=== PATIENT | male | born 1970 | race African-American/Black ===

== ENCOUNTER 2023-09-23 12:29 | Inpatient (IN) | payer OTHER ==
[2023-09-23 13:20] VITALS: BMI 21.6
[2023-09-23] MEDS ORDERED: ALBUTEROL SO4 HFA INHALER IH ONE (15:38)
[2023-09-23] MEDS ORDERED: BENZOCAINE/MENTHOL (CHLORASEPTIC ) LOZENGE MM PRN (15:49)
[2023-09-23] MEDS ORDERED: NALOXONE HCL 0.4 MG/ML VIAL IM PRN (15:49)
[2023-09-23] MEDS ORDERED: NALOXONE HCL (KLOXXADO) 8 MG SPRAY NS PRN (15:49)
[2023-09-23] MEDS ORDERED: guaiFENesin 600 MG TABLET.ER (FP) PO PRN (15:49)
[2023-09-23] MEDS ORDERED: NICOTINE POLACRILEX 2 MG LOZENGE BC PRN (15:49)
[2023-09-23] MEDS ORDERED: DICYCLOMINE HCL 10 MG CAPSULE PO PRN (15:49)
[2023-09-23] MEDS ORDERED: POLYETHYLENE GLYCOL (HEALTHYLAX) 3350 17 GM PACKET PO PRN (15:49)
[2023-09-23] MEDS ORDERED: ONDANSETRON *ODT* 4 MG TABLET SL PRN (15:49)
[2023-09-23] MEDS ORDERED: LOPERAMIDE HCL 2 MG CAPSULE PO PRN (15:49)
[2023-09-23] MEDS ORDERED: IBUPROFEN 400 MG TABLET (FP) PO PRN (15:49)
[2023-09-23] MEDS ORDERED: BISMUTH SUBSALICYLATE 524 MG/30 ML PO PRN (15:49)
[2023-09-23] MEDS ORDERED: BENZONATATE 200 MG CAPSULE PO PRN (15:49)
[2023-09-23] MEDS ORDERED: MAGNESIUM HYDROX 2400MG/30ML ORAL SUSPENSION 30 ML CUP PO PRN (15:49)
[2023-09-23] MEDS ORDERED: MAG HYDROX/AL HYDROX/SIMETH 30 ML UNIT-DOSE CUP PO PRN (15:49)
[2023-09-23] MEDS ORDERED: IBUPROFEN 600 MG TABLET (FP) PO PRN (15:49)
[2023-09-23] MEDS ORDERED: cloNIDine HCL 0.1 MG TABLET ONE (16:49)
[2023-09-23] MEDS: cloNIDine HCL 0.1 MG TABLET PO PRN (16:51)
[2023-09-23] MEDS: DOXYCYCLINE HYCLATE 100 MG TABLET PO SCH (17:54)
[2023-09-23] MEDS: METHOCARBAMOL 500 MG TABLET PO PRN (18:51)
[2023-09-23] MEDS: ACETAMINOPHEN 325 MG TABLET (FP) PO PRN (18:53)
[2023-09-23] MEDS: hydrOXYzine PAMOATE 25 MG CAPSULE (FP) PO PRN (20:51)
[2023-09-23] MEDS ORDERED: P-EPHED 60MG/TRIPROLIDI 2.5MG TABLET PO PRN (22:30)
[2023-09-23] MEDS: THIAMINE HCL 100 MG TABLET (FP) PO SCH (22:51)
[2023-09-23] MEDS: MELATONIN 5 MG TABLETS PO SCH (22:51)
[2023-09-24] MEDS: OSELTAMIVIR PHOSPHATE 75 MG CAPSULE PO SCH ×3 (00:09→22:50)
[2023-09-24] MEDS: cloNIDine HCL 0.1 MG TABLET PO PRN (05:57)
[2023-09-24] MEDS: hydrOXYzine PAMOATE 25 MG CAPSULE (FP) PO PRN ×2 (05:57→22:51)
[2023-09-24] MEDS: METHOCARBAMOL 500 MG TABLET PO PRN ×2 (05:57→22:50)
[2023-09-24] MEDS: ACETAMINOPHEN 325 MG TABLET (FP) PO PRN (05:58)
[2023-09-24] MEDS: ALBUTEROL SO4 HFA INHALER IH PRN ×2 (06:05→19:25)
[2023-09-24] MEDS: DOXYCYCLINE HYCLATE 100 MG TABLET PO SCH ×2 (09:04→17:50)
[2023-09-24] MEDS: PRENATAL VITAMINS W/ FOLIC ACID TABLET (FP) PO SCH (09:04)
[2023-09-24] MEDS: NICOTINE 14 MG/24 HOURS TOPICAL PATCH TD SCH (09:14)
[2023-09-24] MEDS ORDERED: chlordiazePOXIDE HCL 25 MG CAPSULE PO PRN (10:25)
[2023-09-24] MEDS: chlordiazePOXIDE HCL 25 MG CAPSULE PO SCH ×3 (10:43→22:51)
[2023-09-24 11:44] LABS: HEMATOCRIT 38.5 % (35.4-49); HEMOGLOBIN 12.6 GM/dL (11.7-16.9); MCH 27.5 pg (25.7-33.7); MCHC 32.8 g/dl (32.0-35.9); PLATELET COUNT 327 10^3/uL (134-434); RBC 4.58 M/mm3 (4.00-5.60); WHITE BLOOD COUNT 5.5 K/mm3 (4.0-10.0)
[2023-09-24 11:54] LABS: EPI CELLS 2 /uL (0-25.1); HYALINE CASTS 1 /uL (0-3.1); URINE APPEARANCE CLOUDY; URINE BACTERIA 23 /uL (0-1359); URINE BILIRUBIN NEGATIVE (NEGATIVE); URINE COLOR YELLOW; URINE GLUCOSE (UA) NEGATIVE (NEGATIVE); URINE KETONE NEGATIVE (NEGATIVE); URINE LEUK ESTERASE 3+ (NEGATIVE); URINE NITRITE NEGATIVE (NEGATIVE); URINE PROTEIN NEGATIVE (NEGATIVE); URINE RBC 13 /uL (0-23.9); URINE UROBILINOGEN 0.2 mg/dL (0.2-1.0); URINE WBC 1269 /uL (0-25.8)
[2023-09-24 12:26] LABS: CHLORIDE 104 mmol/L (98-107); POTASSIUM 4.4 mmol/L (3.5-5.1); SODIUM 138 mmol/L (136-145)
[2023-09-24 12:44] LABS: ALBUMIN 3.1 g/dl (3.4-5.0); CALCIUM 8.7 mg/dL (8.5-10.1)
[2023-09-24 12:45] LABS: ANION GAP 6 mmol/L (4-13); BLOOD UREA NITROGEN 14.8 mg/dL (7-18); CO2 29 mmol/L (21-32); GLUCOSE,RANDOM 96 mg/dL (74-106)
[2023-09-24 12:47] LABS: CREATININE 1.4 mg/dL (0.55-1.3)
[2023-09-24 12:48] LABS: SGOT/AST 22 U/L (15-37); SGPT/ALT 20 U/L (13-61); TOT PROT 6.5 g/dl (6.4-8.2)
[2023-09-24 12:49] LABS: BILIRUBIN,TOTAL 0.4 mg/dL (0.2-1)
[2023-09-24 12:50] LABS: ALK PHOS 84 U/L (45-117)
[2023-09-24] MEDS: MELATONIN 5 MG TABLETS PO SCH (22:49)
[2023-09-24] MEDS: THIAMINE HCL 100 MG TABLET (FP) PO SCH (22:51)
[2023-09-25] MEDS: chlordiazePOXIDE HCL 25 MG CAPSULE PO SCH ×3 (06:00→17:06)
[2023-09-25] MEDS: DOXYCYCLINE HYCLATE 100 MG TABLET PO SCH ×2 (10:23→17:06)
[2023-09-25] MEDS: OSELTAMIVIR PHOSPHATE 75 MG CAPSULE PO SCH (10:24)
[2023-09-25] MEDS: PRENATAL VITAMINS W/ FOLIC ACID TABLET (FP) PO SCH (10:24)
[2023-09-25] MEDS: NICOTINE 14 MG/24 HOURS TOPICAL PATCH TD SCH (10:24)
[2023-09-25] MEDS: ACETAMINOPHEN 325 MG TABLET (FP) PO PRN (17:07)
[2023-09-25 21:37] VITALS: BP 124/77; PULSE 96; RESP 16; TEMP 97.5
[2023-09-26] MEDS ORDERED: chlordiazePOXIDE HCL 25 MG CAPSULE PO SCH (05:00)
[2023-09-27] MEDS ORDERED: chlordiazePOXIDE HCL 10 MG CAPSULE PO PRN
[2023-09-27] MEDS ORDERED: chlordiazePOXIDE HCL 10 MG CAPSULE PO SCH (05:00)
[2023-09-28] MEDS ORDERED: chlordiazePOXIDE HCL 10 MG CAPSULE PO SCH (05:00)
[2023-09-29] MEDS ORDERED: chlordiazePOXIDE HCL 10 MG CAPSULE PO ONE (05:00)
== END 2023-09-25 21:50 | disposition left against medical advice (07) | DRG 770 ==
LOC: YASAS 12:29 → Y3N 16:29
PROVIDERS: ADMIT Allergy & Immunology; ATTEND Surgery
PROC: HZ2ZZZZ Detoxification Services for Substance Abuse Treatment (ICD-10-PCS; principal; 2023-09-23)
DX: F10.230 Alcohol dependence with withdrawal, uncomplicated (principal); F14.20 Cocaine dependence, uncomplicated; F13.10 Sedative, hypnotic or anxiolytic abuse, uncomplicated; F17.210 Nicotine dependence, cigarettes, uncomplicated; J10.1 Influenza due to other identified influenza virus with other respiratory manifestations; J45.40 Moderate persistent asthma, uncomplicated; Z28.310 Unvaccinated for COVID-19; Z28.9 Immunization not carried out for unspecified reason; Z59.00 Homelessness unspecified
CPT/HCPCS: 0241U-QW; 36415; 80053; 80307; 81003; 85027; 86780; 87635; 87811; 93005; 93010

== ENCOUNTER 2023-11-17 14:26 | Inpatient (IN) | payer OTHER ==
[2023-11-17 15:35] VITALS: BMI 21.1
[2023-11-17] MEDS ORDERED: ONDANSETRON *ODT* 4 MG TABLET SL PRN (18:00)
[2023-11-17] MEDS ORDERED: DICYCLOMINE HCL 10 MG CAPSULE PO PRN (18:00)
[2023-11-17] MEDS ORDERED: MAGNESIUM HYDROX 2400MG/30ML ORAL SUSPENSION 30 ML CUP PO PRN (18:00)
[2023-11-17] MEDS ORDERED: MAG HYDROX/AL HYDROX/SIMETH 30 ML UNIT-DOSE CUP PO PRN (18:00)
[2023-11-17] MEDS ORDERED: ACETAMINOPHEN 325 MG TABLET (FP) PO PRN (18:00)
[2023-11-17] MEDS ORDERED: BENZOCAINE/MENTHOL (CHLORASEPTIC ) LOZENGE MM PRN (18:00)
[2023-11-17] MEDS ORDERED: NICOTINE POLACRILEX 2 MG GUM BUC PRN (18:00)
[2023-11-17] MEDS ORDERED: guaiFENesin 600 MG TABLET.ER (FP) PO PRN (18:00)
[2023-11-17] MEDS ORDERED: IBUPROFEN 400 MG TABLET (FP) PO PRN (18:00)
[2023-11-17] MEDS ORDERED: P-EPHED 60MG/TRIPROLIDI 2.5MG TABLET PO PRN (18:00)
[2023-11-17] MEDS ORDERED: POLYETHYLENE GLYCOL (HEALTHYLAX) 3350 17 GM PACKET PO PRN (18:00)
[2023-11-17] MEDS ORDERED: BENZONATATE 200 MG CAPSULE PO PRN (18:00)
[2023-11-17] MEDS ORDERED: LOPERAMIDE HCL 2 MG CAPSULE PO PRN (18:00)
[2023-11-17] MEDS: IBUPROFEN 600 MG TABLET (FP) PO PRN (20:03)
[2023-11-17] MEDS: METOPROLOL TARTRATE 25 MG TABLET (FP) PO ONE (22:29)
[2023-11-17] MEDS: THIAMINE HCL 100 MG TABLET (FP) PO SCH (22:29)
[2023-11-17] MEDS: MELATONIN 5 MG TABLETS PO SCH (22:29)
[2023-11-18] MEDS: diazePAM 5 MG TABLET PO SCH (10:47)
[2023-11-18] MEDS: PRENATAL VITAMINS W/ FOLIC ACID TABLET (FP) PO SCH (10:47)
[2023-11-18 12:04] LABS: HEMATOCRIT 43.4 % (35.4-49); HEMOGLOBIN 14.5 GM/dL (11.7-16.9); MCH 28.1 pg (25.7-33.7); MCHC 33.5 g/dl (32.0-35.9); MEAN CELL VOLUME 84.1 fl (80-96); PLATELET COUNT 515 10^3/uL (134-434); RBC 5.16 M/mm3 (4.00-5.60); RDW 17.4 % (11.9-15.9); WHITE BLOOD COUNT 13.3 K/mm3 (4.0-10.0)
[2023-11-18 12:13] LABS: POTASSIUM 4.5 mmol/L (3.5-5.1)
[2023-11-18 12:19] LABS: BLOOD UREA NITROGEN 8.4 mg/dL (7-18); CALCIUM 9.1 mg/dL (8.5-10.1)
[2023-11-18 12:20] LABS: ALBUMIN 3.4 g/dl (3.4-5.0)
[2023-11-18 12:23] LABS: CREATININE 1.1 mg/dL (0.55-1.3)
[2023-11-18 12:24] LABS: BILIRUBIN,TOTAL 0.6 mg/dL (0.2-1); TOT PROT 7.4 g/dl (6.4-8.2)
[2023-11-18] MEDS: diazePAM 5 MG TABLET PO PRN (12:44)
[2023-11-18] MEDS ORDERED: ALBUTEROL SO4 HFA INHALER IH PRN (15:55)
[2023-11-20] MEDS: BISMUTH SUBSALICYLATE 524 MG/30 ML PO PRN (01:13)
[2023-11-20] MEDS: diazePAM 5 MG TABLET PO SCH (05:32)
[2023-11-20 09:38] VITALS: BP 114/75; PULSE 82; RESP 18; TEMP 97.8
[2023-11-21] MEDS ORDERED: diazePAM 5 MG TABLET PO SCH (06:00)
[2023-11-22] MEDS ORDERED: diazePAM 5 MG TABLET PO ONE (06:00)
== END 2023-11-20 14:18 | disposition left against medical advice (07) | DRG 770 ==
LOC: YASAS 14:26 → Y6N 19:06
PROVIDERS: ADMIT Allergy & Immunology; ATTEND Surgery
PROC: HZ2ZZZZ Detoxification Services for Substance Abuse Treatment (ICD-10-PCS; principal; 2023-11-17)
DX: F10.230 Alcohol dependence with withdrawal, uncomplicated (principal); F14.20 Cocaine dependence, uncomplicated; F17.210 Nicotine dependence, cigarettes, uncomplicated; J45.909 Unspecified asthma, uncomplicated; Z86.19 Personal history of other infectious and parasitic diseases; Z28.310 Unvaccinated for COVID-19; Z28.9 Immunization not carried out for unspecified reason
CPT/HCPCS: 0241U-QW; 36415; 71045-TC-FY; 80053; 80305; 85027; 86780; 87811; 93005; 93010

== ENCOUNTER 2023-12-08 11:17 | Inpatient (IN) | payer OTHER ==
[2023-12-08 11:47] VITALS: BMI 21.7
[2023-12-08] MEDS ORDERED: BENZONATATE 200 MG CAPSULE PO PRN (13:29)
[2023-12-08] MEDS ORDERED: POLYETHYLENE GLYCOL (HEALTHYLAX) 3350 17 GM PACKET PO PRN (13:29)
[2023-12-08] MEDS ORDERED: ACETAMINOPHEN 325 MG TABLET (FP) PO PRN (13:29)
[2023-12-08] MEDS ORDERED: NALOXONE HCL 0.4 MG/ML VIAL IM PRN (13:29)
[2023-12-08] MEDS ORDERED: MAGNESIUM HYDROX 2400MG/30ML ORAL SUSPENSION 30 ML CUP PO PRN (13:29)
[2023-12-08] MEDS ORDERED: BENZOCAINE/MENTHOL (CHLORASEPTIC ) LOZENGE MM PRN (13:29)
[2023-12-08] MEDS ORDERED: IBUPROFEN 600 MG TABLET (FP) PO PRN (13:29)
[2023-12-08] MEDS ORDERED: DICYCLOMINE HCL 10 MG CAPSULE PO PRN (13:29)
[2023-12-08] MEDS ORDERED: guaiFENesin 600 MG TABLET.ER (FP) PO PRN (13:29)
[2023-12-08] MEDS ORDERED: IBUPROFEN 400 MG TABLET (FP) PO PRN (13:29)
[2023-12-08] MEDS ORDERED: NALOXONE HCL (KLOXXADO) 8 MG SPRAY NS PRN (13:29)
[2023-12-08] MEDS ORDERED: ONDANSETRON *ODT* 4 MG TABLET SL PRN (13:29)
[2023-12-08] MEDS ORDERED: LOPERAMIDE HCL 2 MG CAPSULE PO PRN (13:29)
[2023-12-08] MEDS: diazePAM 5 MG TABLET PO SCH (17:45)
[2023-12-08] MEDS: BISMUTH SUBSALICYLATE 262 MG/15 ML BTL PO PRN (20:37)
[2023-12-08] MEDS: THIAMINE HCL 100 MG TABLET (FP) PO SCH (22:48)
[2023-12-08] MEDS: MELATONIN 5 MG TABLETS PO SCH (22:48)
[2023-12-08] MEDS: hydrOXYzine PAMOATE 25 MG CAPSULE (FP) PO PRN (22:48)
[2023-12-08] MEDS: METHOCARBAMOL 500 MG TABLET PO PRN (22:48)
[2023-12-08] MEDS: MAG HYDROX/AL HYDROX/SIMETH 30 ML UNIT-DOSE CUP PO PRN (22:52)
[2023-12-09] MEDS ORDERED: ALBUTEROL SO4 HFA INHALER IH PRN (07:47)
[2023-12-09 08:56] LABS: HEMATOCRIT 39.7 % (35.4-49); HEMOGLOBIN 12.7 GM/dL (11.7-16.9); MCH 27.4 pg (25.7-33.7); MEAN CELL VOLUME 85.4 fl (80-96); MEAN PLT VOLUME 8.3 fl (7.5-11.1); PLATELET COUNT 325 10^3/uL (134-434); RBC 4.65 M/mm3 (4.00-5.60); RDW 16.9 % (11.9-15.9); WHITE BLOOD COUNT 5.1 K/mm3 (4.0-10.0)
[2023-12-09 09:10] LABS: CHLORIDE 107 mmol/L (98-107); POTASSIUM 4.6 mmol/L (3.5-5.1); SODIUM 141 mmol/L (136-145)
[2023-12-09 09:22] LABS: BLOOD UREA NITROGEN 16.1 mg/dL (7-18); CALCIUM 8.8 mg/dL (8.5-10.1)
[2023-12-09 09:23] LABS: ALBUMIN 3.1 g/dl (3.4-5.0); ANION GAP 6 mmol/L (4-13); CO2 28 mmol/L (21-32); GLUCOSE,RANDOM 87 mg/dL (74-106)
[2023-12-09 09:25] LABS: BILIRUBIN,TOTAL 0.5 mg/dL (0.2-1); SGPT/ALT 17 U/L (13-61); TOT PROT 6.4 g/dl (6.4-8.2)
[2023-12-09 09:26] LABS: ALK PHOS 84 U/L (45-117); CREATININE 1.1 mg/dL (0.55-1.3); SGOT/AST 24 U/L (15-37)
[2023-12-09] MEDS: NICOTINE 21 MG/24 HOURS TOPICAL PATCH TD SCH (10:31)
[2023-12-09] MEDS: PRENATAL VITAMINS W/ FOLIC ACID TABLET (FP) PO SCH (10:31)
[2023-12-10] MEDS: diazePAM 5 MG TABLET PO SCH (05:41)
[2023-12-10 09:45] VITALS: RESP 18
[2023-12-10] MEDS: diazePAM 5 MG TABLET PO PRN (10:06)
[2023-12-10 13:21] VITALS: BP 145/100; PULSE 84; TEMP 97.7
[2023-12-11] MEDS ORDERED: diazePAM 5 MG TABLET PO SCH (06:00)
[2023-12-12] MEDS ORDERED: diazePAM 5 MG TABLET PO ONE (06:00)
== END 2023-12-10 15:36 | disposition left against medical advice (07) | DRG 770 ==
LOC: YASAS 11:17 → Y6N 14:38
PROVIDERS: ADMIT Allergy & Immunology; ATTEND Surgery
PROC: HZ2ZZZZ Detoxification Services for Substance Abuse Treatment (ICD-10-PCS; principal; 2023-12-08)
DX: F10.230 Alcohol dependence with withdrawal, uncomplicated (principal); F14.20 Cocaine dependence, uncomplicated; I10 Essential (primary) hypertension; J45.40 Moderate persistent asthma, uncomplicated; Z86.19 Personal history of other infectious and parasitic diseases
CPT/HCPCS: 36415; 80053; 80307; 85027; 86780; 93005; 93010

== ENCOUNTER 2024-03-10 08:50 | Inpatient (IN) | payer OTHER ==
[2024-03-10 09:45] VITALS: BMI 21.2
[2024-03-10] MEDS ORDERED: LOPERAMIDE HCL 2 MG CAPSULE PO PRN (11:52)
[2024-03-10] MEDS ORDERED: NALOXONE HCL 0.4 MG/ML VIAL IM PRN (11:52)
[2024-03-10] MEDS ORDERED: BENZOCAINE/MENTHOL (CHLORASEPTIC ) LOZENGE MM PRN (11:52)
[2024-03-10] MEDS ORDERED: ONDANSETRON *ODT* 4 MG TABLET SL PRN (11:52)
[2024-03-10] MEDS ORDERED: IBUPROFEN 400 MG TABLET (FP) PO PRN (11:52)
[2024-03-10] MEDS ORDERED: NICOTINE POLACRILEX 2 MG GUM BUC PRN (11:52)
[2024-03-10] MEDS ORDERED: MAGNESIUM HYDROX 2400MG/30ML ORAL SUSPENSION 30 ML CUP PO PRN (11:52)
[2024-03-10] MEDS ORDERED: MAG HYDROX/AL HYDROX/SIMETH 30 ML UNIT-DOSE CUP PO PRN (11:52)
[2024-03-10] MEDS ORDERED: BISMUTH SUBSALICYLATE 524 MG/30 ML PO PRN (11:52)
[2024-03-10] MEDS ORDERED: POLYETHYLENE GLYCOL (HEALTHYLAX) 3350 17 GM PACKET PO PRN (11:52)
[2024-03-10] MEDS ORDERED: BENZONATATE 200 MG CAPSULE PO PRN (11:52)
[2024-03-10] MEDS ORDERED: ACETAMINOPHEN 325 MG TABLET (FP) PO PRN (11:52)
[2024-03-10] MEDS ORDERED: NALOXONE (NARCAN) HCL 4 MG/0.1 ML SPRAY NS PRN (11:52)
[2024-03-10] MEDS ORDERED: guaiFENesin 600 MG TABLET.ER (FP) PO PRN (11:52)
[2024-03-10] MEDS ORDERED: DICYCLOMINE HCL 10 MG CAPSULE PO PRN (11:52)
[2024-03-10] MEDS ORDERED: cloNIDine HCL 0.1 MG TABLET ONE (12:04)
[2024-03-10] MEDS: cloNIDine HCL 0.1 MG TABLET PO ONE (12:06)
[2024-03-10] MEDS ORDERED: ALBUTEROL SO4 HFA INHALER IH PRN (15:03)
[2024-03-10] MEDS: diazePAM 5 MG TABLET PO PRN (18:48)
[2024-03-10] MEDS: MELATONIN 5 MG TABLETS PO SCH (22:09)
[2024-03-10] MEDS: THIAMINE 100 MG TABLET PO SCH (22:09)
[2024-03-10] MEDS: diazePAM 5 MG TABLET PO SCH (22:10)
[2024-03-10] MEDS: METHOCARBAMOL 500 MG TABLET PO PRN (22:10)
[2024-03-11 08:32] LABS: POTASSIUM 4.5 mmol/L (3.5-5.1)
[2024-03-11 08:34] LABS: HEMATOCRIT 39.8 % (35.4-49); HEMOGLOBIN 13.5 GM/dL (11.7-16.9); MCH 27.8 pg (25.7-33.7); MCHC 33.9 g/dl (32.0-35.9); MEAN CELL VOLUME 81.9 fl (80-96); MEAN PLT VOLUME 7.9 fl (7.5-11.1); PLATELET COUNT 276 10^3/uL (134-434); RBC 4.85 M/mm3 (4.00-5.60); RDW 16.8 % (11.9-15.9); WHITE BLOOD COUNT 5.5 K/mm3 (4.0-10.0)
[2024-03-11 08:35] LABS: ALBUMIN 3.6 g/dl (3.4-5.0); CALCIUM 8.7 mg/dL (8.5-10.1)
[2024-03-11 08:39] LABS: CREATININE 1.1 mg/dL (0.55-1.3)
[2024-03-11 08:40] LABS: BILIRUBIN,TOTAL 0.8 mg/dL (0.2-1); TOT PROT 7.1 g/dl (6.4-8.2)
[2024-03-11] MEDS: PRENATAL VITAMINS W/ FOLIC ACID TABLET (FP) PO SCH (10:24)
[2024-03-11] MEDS: NICOTINE 21 MG/24 HOURS TOPICAL PATCH TD SCH (10:24)
[2024-03-11] MEDS: hydrOXYzine PAMOATE 25 MG CAPSULE (FP) PO PRN (20:14)
[2024-03-11] MEDS: IBUPROFEN 600 MG TABLET (FP) PO PRN (20:19)
[2024-03-12] MEDS: diazePAM 5 MG TABLET PO SCH (06:14)
[2024-03-12 12:50] VITALS: RESP 18
[2024-03-12 16:43] VITALS: BP 131/86; PULSE 88; TEMP 99.3
[2024-03-13] MEDS ORDERED: diazePAM 5 MG TABLET PO SCH (06:00)
[2024-03-14] MEDS ORDERED: diazePAM 5 MG TABLET PO ONE (06:00)
== END 2024-03-12 18:38 | disposition left against medical advice (07) | DRG 770 ==
LOC: YASAS 08:50 → Y3N 12:09
PROVIDERS: ADMIT Allergy & Immunology; ATTEND Surgery
PROC: HZ2ZZZZ Detoxification Services for Substance Abuse Treatment (ICD-10-PCS; principal; 2024-03-10)
DX: F10.230 Alcohol dependence with withdrawal, uncomplicated (principal); F14.10 Cocaine abuse, uncomplicated; F17.210 Nicotine dependence, cigarettes, uncomplicated; J45.40 Moderate persistent asthma, uncomplicated; Z86.11 Personal history of tuberculosis
CPT/HCPCS: 36415; 80053; 80305; 80307; 85027; 86780; 93005; 93010

== ENCOUNTER 2024-04-01 09:51 | Inpatient (IN) | payer OTHER ==
[2024-04-01 10:36] VITALS: BMI 22.1
[2024-04-01] MEDS ORDERED: NICOTINE POLACRILEX 2 MG LOZENGE BC PRN (11:42)
[2024-04-01] MEDS ORDERED: NICOTINE POLACRILEX 2 MG GUM BUC PRN (11:42)
[2024-04-01] MEDS ORDERED: MAGNESIUM HYDROX 2400MG/30ML ORAL SUSPENSION 30 ML CUP PO PRN (11:42)
[2024-04-01] MEDS ORDERED: POLYETHYLENE GLYCOL (HEALTHYLAX) 3350 17 GM PACKET PO PRN (11:42)
[2024-04-01] MEDS ORDERED: P-EPHED 60MG/TRIPROLIDI 2.5MG TABLET PO PRN (11:42)
[2024-04-01] MEDS ORDERED: IBUPROFEN 400 MG TABLET (FP) PO PRN (11:42)
[2024-04-01] MEDS ORDERED: LOPERAMIDE HCL 2 MG CAPSULE PO PRN (11:42)
[2024-04-01] MEDS ORDERED: DICYCLOMINE HCL 10 MG CAPSULE PO PRN (11:42)
[2024-04-01] MEDS ORDERED: BENZONATATE 200 MG CAPSULE PO PRN (11:42)
[2024-04-01] MEDS ORDERED: guaiFENesin 600 MG TABLET.ER (FP) PO PRN (11:42)
[2024-04-01] MEDS ORDERED: BENZOCAINE/MENTHOL (CHLORASEPTIC ) LOZENGE MM PRN (11:42)
[2024-04-01] MEDS ORDERED: ONDANSETRON *ODT* 4 MG TABLET SL PRN (11:42)
[2024-04-01] MEDS ORDERED: MAG HYDROX/AL HYDROX/SIMETH 30 ML UNIT-DOSE CUP PO PRN (11:42)
[2024-04-01] MEDS: NICOTINE 14 MG/24 HOURS TOPICAL PATCH TD SCH (12:58)
[2024-04-01] MEDS ORDERED: ALBUTEROL SO4 HFA INHALER IH ONE (19:34)
[2024-04-01] MEDS: hydrOXYzine PAMOATE 25 MG CAPSULE (FP) PO PRN (19:36)
[2024-04-01] MEDS: METHOCARBAMOL 500 MG TABLET PO PRN (19:36)
[2024-04-01] MEDS: IBUPROFEN 600 MG TABLET (FP) PO PRN (19:36)
[2024-04-01] MEDS: ALBUTEROL SO4 HFA INHALER IH PRN (19:51)
[2024-04-01] MEDS: MELATONIN 5 MG TABLETS PO SCH (22:30)
[2024-04-01] MEDS: THIAMINE 100 MG TABLET PO SCH (22:30)
[2024-04-02] MEDS: cloNIDine HCL 0.1 MG TABLET PO ONE (07:39)
[2024-04-02] MEDS: PRENATAL VITAMINS W/ FOLIC ACID TABLET (FP) PO SCH (10:40)
[2024-04-03] MEDS: diazePAM 5 MG TABLET PO SCH (10:03)
[2024-04-03] MEDS: ACETAMINOPHEN 325 MG TABLET (FP) PO PRN (10:03)
[2024-04-03] MEDS: BISMUTH SUBSALICYLATE 262 MG/15 ML BTL PO PRN (16:04)
[2024-04-04 21:21] VITALS: RESP 18
[2024-04-04] MEDS ORDERED: amLODIPine BESYLATE 5 MG TABLET (FP) PO ONE (21:26)
[2024-04-04] MEDS: amLODIPine BESYLATE 5 MG TABLET (FP) PO ONE (21:47)
[2024-04-05] MEDS ORDERED: diazePAM 5 MG TABLET PO SCH (06:00)
[2024-04-05 06:13] VITALS: BP 152/98; PULSE 82; TEMP 98.7
[2024-04-05] MEDS: diazePAM 5 MG TABLET PO ONE (06:59)
== END 2024-04-05 09:00 | disposition home or self-care (01) | DRG 774 ==
LOC: YASAS 09:51 → Y3N 13:15
PROVIDERS: ADMIT Allergy & Immunology; ATTEND Surgery
PROC: HZ2ZZZZ Detoxification Services for Substance Abuse Treatment (ICD-10-PCS; principal; 2024-04-01)
DX: F10.230 Alcohol dependence with withdrawal, uncomplicated (principal); F14.20 Cocaine dependence, uncomplicated; F12.20 Cannabis dependence, uncomplicated; F17.210 Nicotine dependence, cigarettes, uncomplicated; J45.40 Moderate persistent asthma, uncomplicated; Z86.11 Personal history of tuberculosis; Z86.19 Personal history of other infectious and parasitic diseases
CPT/HCPCS: 80305; 80307

== ENCOUNTER 2024-05-20 20:03 | Inpatient (IN) | payer OTHER ==
[2024-05-21 02:03] VITALS: BMI 22.6
[2024-05-21] MEDS ORDERED: diazePAM 5 MG TABLET PO PRN (12:00)
[2024-05-21] MEDS ORDERED: BISMUTH SUBSALICYLATE 524 MG/30 ML PO PRN (12:00)
[2024-05-21] MEDS ORDERED: LOPERAMIDE HCL 2 MG CAPSULE PO PRN (12:00)
[2024-05-21] MEDS ORDERED: BENZOCAINE/MENTHOL (CHLORASEPTIC ) LOZENGE MM PRN (12:00)
[2024-05-21] MEDS ORDERED: IBUPROFEN 600 MG TABLET (FP) PO PRN (12:00)
[2024-05-21] MEDS ORDERED: ONDANSETRON *ODT* 4 MG TABLET SL PRN (12:00)
[2024-05-21] MEDS ORDERED: guaiFENesin 600 MG TABLET.ER (FP) PO PRN (12:00)
[2024-05-21] MEDS ORDERED: POLYETHYLENE GLYCOL (HEALTHYLAX) 3350 17 GM PACKET PO PRN (12:00)
[2024-05-21] MEDS ORDERED: ACETAMINOPHEN 325 MG TABLET (FP) PO PRN (12:00)
[2024-05-21] MEDS ORDERED: METHOCARBAMOL 500 MG TABLET PO PRN (12:00)
[2024-05-21] MEDS ORDERED: BENZONATATE 200 MG CAPSULE PO PRN (12:00)
[2024-05-21] MEDS ORDERED: DICYCLOMINE HCL 10 MG CAPSULE PO PRN (12:00)
[2024-05-21] MEDS ORDERED: IBUPROFEN 400 MG TABLET (FP) PO PRN (12:00)
[2024-05-21] MEDS ORDERED: NICOTINE 21 MG/24 HOURS TOPICAL PATCH TD PRN (12:15)
[2024-05-21] MEDS ORDERED: NICOTINE POLACRILEX 4 MG GUM BUC PRN (12:15)
[2024-05-21] MEDS ORDERED: ALBUTEROL SO4 HFA INHALER IH PRN (12:23)
[2024-05-21] MEDS ORDERED: amLODIPine BESYLATE 5 MG TABLET (FP) ONE (12:43)
[2024-05-21] MEDS: amLODIPine BESYLATE 5 MG TABLET (FP) PO SCH (12:44)
[2024-05-21] MEDS ORDERED: LISINOPRIL 10 MG TABLET PO SCH (12:45)
[2024-05-21] MEDS ORDERED: MAG HYDROX/AL HYDROX/SIMETH 30 ML UNIT-DOSE CUP ONE (12:51)
[2024-05-21] MEDS: MAG HYDROX/AL HYDROX/SIMETH 30 ML UNIT-DOSE CUP PO PRN (12:52)
[2024-05-21] MEDS ORDERED: NALOXONE (NARCAN) HCL 4 MG/0.1 ML SPRAY NS PRN (13:00)
[2024-05-21] MEDS ORDERED: MAGNESIUM HYDROX 2400MG/30ML ORAL SUSPENSION 30 ML CUP PO PRN (13:00)
[2024-05-21] MEDS ORDERED: NALOXONE HCL 0.4 MG/ML VIAL IM PRN (13:00)
[2024-05-21] MEDS: diazePAM 5 MG TABLET PO SCH (17:20)
[2024-05-21] MEDS: MELATONIN 5 MG TABLETS PO SCH (22:38)
[2024-05-21] MEDS: THIAMINE 100 MG TABLET PO SCH (22:39)
[2024-05-22 09:25] LABS: HEMOGLOBIN 14.4 GM/dL (11.7-16.9); MCH 28.3 pg (25.7-33.7); MCHC 33.4 g/dl (32.0-35.9); MEAN CELL VOLUME 84.8 fl (80-96); MEAN PLT VOLUME 8.4 fl (7.5-11.1); PLATELET COUNT 281 10^3/uL (134-434); RBC 5.08 M/mm3 (4.00-5.60); RDW 17.6 % (11.9-15.9); WHITE BLOOD COUNT 4.8 K/mm3 (4.0-10.0)
[2024-05-22 09:26] LABS: CHLORIDE 104 mmol/L (98-107); POTASSIUM 4.2 mmol/L (3.5-5.1); SODIUM 139 mmol/L (136-145)
[2024-05-22 09:28] LABS: ALBUMIN 3.2 g/dl (3.4-5.0); CALCIUM 8.8 mg/dL (8.5-10.1)
[2024-05-22 09:29] LABS: ANION GAP 7 mmol/L (4-13); BLOOD UREA NITROGEN 9.1 mg/dL (7-18); CO2 27 mmol/L (21-32); GLUCOSE,RANDOM 128 mg/dL (74-106)
[2024-05-22 09:32] LABS: SGOT/AST 30 U/L (15-37); SGPT/ALT 19 U/L (13-61)
[2024-05-22 09:33] LABS: BILIRUBIN,TOTAL 0.8 mg/dL (0.2-1); TOT PROT 6.7 g/dl (6.4-8.2)
[2024-05-22 09:35] LABS: ALK PHOS 106 U/L (45-117)
[2024-05-22] MEDS: PRENATAL VITAMINS W/ FOLIC ACID TABLET (FP) PO SCH (10:19)
[2024-05-23] MEDS: diazePAM 5 MG TABLET PO SCH (06:14)
[2024-05-23 13:19] VITALS: BP 134/85; PULSE 83; RESP 18; TEMP 98.7
[2024-05-24] MEDS ORDERED: diazePAM 5 MG TABLET PO SCH (06:00)
[2024-05-25] MEDS ORDERED: diazePAM 5 MG TABLET PO ONE (06:00)
== END 2024-05-23 15:12 | disposition left against medical advice (07) | DRG 770 ==
LOC: YASAS 20:03 → Y6N 05-21 13:39
PROVIDERS: ADMIT Surgery; ATTEND Family Medicine Addiction Medicine
PROC: HZ2ZZZZ Detoxification Services for Substance Abuse Treatment (ICD-10-PCS; principal; 2024-05-21)
DX: F10.230 Alcohol dependence with withdrawal, uncomplicated (principal); F14.20 Cocaine dependence, uncomplicated; F12.20 Cannabis dependence, uncomplicated; F17.210 Nicotine dependence, cigarettes, uncomplicated; I10 Essential (primary) hypertension; J45.909 Unspecified asthma, uncomplicated; Z86.11 Personal history of tuberculosis; Z86.19 Personal history of other infectious and parasitic diseases; Z59.02 Unsheltered homelessness
CPT/HCPCS: 36415; 80053; 80305; 80307; 85027; 86780; 93005; 93010

== ENCOUNTER 2024-06-19 21:05 | Inpatient (IN) | payer OTHER ==
[2024-06-19 22:14] VITALS: BMI 21.6
[2024-06-20] MEDS ORDERED: NALOXONE (NARCAN) HCL 4 MG/0.1 ML SPRAY NS PRN (00:52)
[2024-06-20] MEDS ORDERED: BENZONATATE 200 MG CAPSULE PO PRN (00:52)
[2024-06-20] MEDS ORDERED: IBUPROFEN 400 MG TABLET (FP) PO PRN (00:52)
[2024-06-20] MEDS ORDERED: ONDANSETRON *ODT* 4 MG TABLET SL PRN (00:52)
[2024-06-20] MEDS ORDERED: MAGNESIUM HYDROX 2400MG/30ML ORAL SUSPENSION 30 ML CUP PO PRN (00:52)
[2024-06-20] MEDS ORDERED: ACETAMINOPHEN 325 MG TABLET (FP) PO PRN (00:52)
[2024-06-20] MEDS ORDERED: LOPERAMIDE HCL 2 MG CAPSULE PO PRN (00:52)
[2024-06-20] MEDS ORDERED: DICYCLOMINE HCL 10 MG CAPSULE PO PRN (00:52)
[2024-06-20] MEDS ORDERED: POLYETHYLENE GLYCOL (HEALTHYLAX) 3350 17 GM PACKET PO PRN (00:52)
[2024-06-20] MEDS ORDERED: MAG HYDROX/AL HYDROX/SIMETH 30 ML UNIT-DOSE CUP PO PRN (00:52)
[2024-06-20] MEDS ORDERED: IBUPROFEN 600 MG TABLET (FP) PO PRN (00:52)
[2024-06-20] MEDS ORDERED: hydrOXYzine PAMOATE 25 MG CAPSULE (FP) PO PRN (00:52)
[2024-06-20] MEDS ORDERED: BISMUTH SUBSALICYLATE 524 MG/30 ML PO PRN (00:52)
[2024-06-20] MEDS ORDERED: guaiFENesin 600 MG TABLET.ER (FP) PO PRN (00:52)
[2024-06-20] MEDS ORDERED: BENZOCAINE/MENTHOL (CHLORASEPTIC ) LOZENGE MM PRN (00:52)
[2024-06-20] MEDS: NALOXONE (NYS OPIOID OVERDOSE PROGRAM) 4 MG/0.1 ML SPRAY NS ONE (00:58)
[2024-06-20] MEDS ORDERED: diazePAM 5 MG TABLET PO PRN (09:19)
[2024-06-20] MEDS: PRENATAL VITAMINS W/ FOLIC ACID TABLET (FP) PO SCH (09:24)
[2024-06-20] MEDS: diazePAM 5 MG TABLET PO SCH (10:01)
[2024-06-20] MEDS ORDERED: ALBUTEROL SO4 HFA INHALER IH PRN (10:35)
[2024-06-20] MEDS ORDERED: MELATONIN 5 MG TABLETS PO SCH (22:00)
[2024-06-20] MEDS: SUVOREXANT 10 MG TABLET PO PRN (22:17)
[2024-06-20] MEDS: THIAMINE 100 MG TABLET PO SCH (22:17)
[2024-06-21] MEDS: METHOCARBAMOL 500 MG TABLET PO PRN (10:23)
[2024-06-21] MEDS: amLODIPine BESYLATE 10 MG TABLET (FP) PO SCH (11:56)
[2024-06-21 14:43] LABS: HEMATOCRIT 42.7 % (35.4-49); MCH 27.7 pg (25.7-33.7); MCHC 32.8 g/dl (32.0-35.9); MEAN CELL VOLUME 84.6 fl (80-96); MEAN PLT VOLUME 8.7 fl (7.5-11.1); PLATELET COUNT 304 10^3/uL (134-434); RBC 5.05 M/mm3 (4.00-5.60); RDW 16.1 % (11.9-15.9); WHITE BLOOD COUNT 4.2 K/mm3 (4.0-10.0)
[2024-06-21 14:56] LABS: POTASSIUM 4.5 mmol/L (3.5-5.1)
[2024-06-21 15:01] LABS: CALCIUM 8.9 mg/dL (8.5-10.1)
[2024-06-21 15:02] LABS: ALBUMIN 3.4 g/dl (3.4-5.0); BLOOD UREA NITROGEN 8.4 mg/dL (7-18)
[2024-06-21 15:05] LABS: CREATININE 1.2 mg/dL (0.55-1.3)
[2024-06-21 15:06] LABS: BILIRUBIN,TOTAL 1.1 mg/dL (0.2-1); TOT PROT 6.7 g/dl (6.4-8.2)
[2024-06-22] MEDS: diazePAM 5 MG TABLET PO SCH (06:28)
[2024-06-22 06:47] VITALS: PULSE 73
[2024-06-22 08:56] VITALS: BP 130/90; RESP 18; TEMP 98.6
[2024-06-22] MEDS: NALOXONE (NYS OPIOID OVERDOSE PROGRAM) 4 MG/0.1 ML SPRAY NS PRN (11:44)
[2024-06-23] MEDS ORDERED: diazePAM 5 MG TABLET PO SCH (06:00)
[2024-06-24] MEDS ORDERED: diazePAM 5 MG TABLET PO ONE (06:00)
== END 2024-06-22 12:15 | disposition home or self-care (01) | DRG 774 ==
LOC: YASAS 21:05 → Y6N 06-20 02:18
PROVIDERS: ADMIT Allergy & Immunology; ATTEND Surgery
PROC: HZ2ZZZZ Detoxification Services for Substance Abuse Treatment (ICD-10-PCS; principal; 2024-06-20)
DX: F10.230 Alcohol dependence with withdrawal, uncomplicated (principal); F14.20 Cocaine dependence, uncomplicated; F12.20 Cannabis dependence, uncomplicated; F17.210 Nicotine dependence, cigarettes, uncomplicated; F19.282 Other psychoactive substance dependence with psychoactive substance-induced sleep disorder; F19.24 Other psychoactive substance dependence with psychoactive substance-induced mood disorder; I10 Essential (primary) hypertension; J45.40 Moderate persistent asthma, uncomplicated; Z86.11 Personal history of tuberculosis; Z86.19 Personal history of other infectious and parasitic diseases; Z56.0 Unemployment, unspecified; Z59.00 Homelessness unspecified
CPT/HCPCS: 36415; 80053; 80305; 80307; 85027; 86780; 93005; 93010

== ENCOUNTER 2024-07-13 08:51 | Inpatient (IN) | payer OTHER ==
[2024-07-13 09:36] VITALS: BMI 21.9
[2024-07-13] MEDS ORDERED: IBUPROFEN 400 MG TABLET (FP) PO PRN (09:42)
[2024-07-13] MEDS ORDERED: BENZOCAINE/MENTHOL (CHLORASEPTIC ) LOZENGE MM PRN (09:42)
[2024-07-13] MEDS ORDERED: ONDANSETRON *ODT* 4 MG TABLET SL PRN (09:42)
[2024-07-13] MEDS ORDERED: MAG HYDROX/AL HYDROX/SIMETH 30 ML UNIT-DOSE CUP PO PRN (09:42)
[2024-07-13] MEDS ORDERED: POLYETHYLENE GLYCOL (HEALTHYLAX) 3350 17 GM PACKET PO PRN (09:42)
[2024-07-13] MEDS ORDERED: NICOTINE POLACRILEX 2 MG LOZENGE BC PRN (09:42)
[2024-07-13] MEDS ORDERED: NICOTINE POLACRILEX 2 MG GUM BUC PRN (09:42)
[2024-07-13] MEDS ORDERED: MAGNESIUM HYDROX 2400MG/30ML ORAL SUSPENSION 30 ML CUP PO PRN (09:42)
[2024-07-13] MEDS ORDERED: NALOXONE (NYS OPIOID OVERDOSE PROGRAM) 4 MG/0.1 ML SPRAY NS PRN (09:42)
[2024-07-13] MEDS ORDERED: BENZONATATE 200 MG CAPSULE PO PRN (09:42)
[2024-07-13] MEDS ORDERED: guaiFENesin 600 MG TABLET.ER (FP) PO PRN (09:42)
[2024-07-13] MEDS ORDERED: LOPERAMIDE HCL 2 MG CAPSULE PO PRN (09:42)
[2024-07-13] MEDS ORDERED: DICYCLOMINE HCL 10 MG CAPSULE PO PRN (09:42)
[2024-07-13] MEDS ORDERED: NICOTINE 14 MG/24 HOURS TOPICAL PATCH TD ONE (10:00)
[2024-07-13] MEDS ORDERED: PRENATAL VITAMINS W/ FOLIC ACID TABLET (FP) PO ONE (10:00)
[2024-07-13] MEDS ORDERED: METHOCARBAMOL 500 MG TABLET ONE (10:00)
[2024-07-13] MEDS: PRENATAL VITAMINS W/ FOLIC ACID TABLET (FP) PO SCH (10:03)
[2024-07-13] MEDS: METHOCARBAMOL 500 MG TABLET PO PRN (10:03)
[2024-07-13] MEDS: NICOTINE 14 MG/24 HOURS TOPICAL PATCH TD SCH (10:03)
[2024-07-13] MEDS: ALBUTEROL SO4 HFA INHALER IH PRN (10:52)
[2024-07-13] MEDS: IBUPROFEN 600 MG TABLET (FP) PO PRN (14:18)
[2024-07-13] MEDS: BISMUTH SUBSALICYLATE 262 MG/15 ML BTL PO PRN (19:54)
[2024-07-13] MEDS: MELATONIN 5 MG TABLETS PO SCH (22:37)
[2024-07-13] MEDS: THIAMINE 100 MG TABLET PO SCH (22:37)
[2024-07-13] MEDS: hydrOXYzine PAMOATE 25 MG CAPSULE (FP) PO PRN (22:38)
[2024-07-14] MEDS ORDERED: chlordiazePOXIDE HCL 25 MG CAPSULE PO PRN (09:14)
[2024-07-14] MEDS: chlordiazePOXIDE HCL 25 MG CAPSULE PO SCH (10:08)
[2024-07-14 12:27] LABS: HEMATOCRIT 39.7 % (35.4-49); HEMOGLOBIN 13.3 GM/dL (11.7-16.9); MCH 27.8 pg (25.7-33.7); MCHC 33.5 g/dl (32.0-35.9); MEAN CELL VOLUME 82.8 fl (80-96); MEAN PLT VOLUME 8.5 fl (7.5-11.1); PLATELET COUNT 313 10^3/uL (134-434); RBC 4.79 M/mm3 (4.00-5.60); RDW 15.9 % (11.9-15.9); WHITE BLOOD COUNT 7.7 K/mm3 (4.0-10.0)
[2024-07-14 12:46] LABS: POTASSIUM 4.9 mmol/L (3.5-5.1)
[2024-07-14 12:49] LABS: ALBUMIN 3.3 g/dl (3.4-5.0); BLOOD UREA NITROGEN 12.4 mg/dL (7-18); CALCIUM 9.1 mg/dL (8.5-10.1)
[2024-07-14 12:52] LABS: CREATININE 1.1 mg/dL (0.55-1.3)
[2024-07-14 12:54] LABS: BILIRUBIN,TOTAL 0.8 mg/dL (0.2-1); TOT PROT 6.6 g/dl (6.4-8.2)
[2024-07-14] MEDS: ACETAMINOPHEN 325 MG TABLET (FP) PO PRN (13:34)
[2024-07-14] MEDS: AMOX TR/POT CLAV 875MG/125MG TABLETS (FP) PO SCH (17:18)
[2024-07-15 16:56] VITALS: BP 110/72; PULSE 88; RESP 18; TEMP 97.6
[2024-07-16] MEDS ORDERED: chlordiazePOXIDE HCL 25 MG CAPSULE PO SCH (05:00)
[2024-07-17] MEDS ORDERED: chlordiazePOXIDE HCL 10 MG CAPSULE PO PRN
[2024-07-17] MEDS ORDERED: chlordiazePOXIDE HCL 10 MG CAPSULE PO SCH (05:00)
[2024-07-18] MEDS ORDERED: chlordiazePOXIDE HCL 10 MG CAPSULE PO SCH (05:00)
[2024-07-19] MEDS ORDERED: chlordiazePOXIDE HCL 10 MG CAPSULE PO ONE (05:00)
== END 2024-07-15 17:54 | disposition left against medical advice (07) | DRG 770 ==
LOC: YASAS 08:51 → Y6N 09:57
PROVIDERS: ADMIT Allergy & Immunology; ATTEND Psychiatry & Neurology Pain Medicine
PROC: HZ2ZZZZ Detoxification Services for Substance Abuse Treatment (ICD-10-PCS; principal; 2024-07-13)
DX: F10.230 Alcohol dependence with withdrawal, uncomplicated (principal); F14.20 Cocaine dependence, uncomplicated; F12.20 Cannabis dependence, uncomplicated; F17.210 Nicotine dependence, cigarettes, uncomplicated; I10 Essential (primary) hypertension; J45.40 Moderate persistent asthma, uncomplicated; Z86.11 Personal history of tuberculosis; Z86.19 Personal history of other infectious and parasitic diseases
CPT/HCPCS: 0241U-QW; 36415; 71046-TC-FY; 80053; 80305; 80307; 85027; 87070; 87205

== ENCOUNTER 2024-08-30 11:40 | Inpatient (IN) | payer OTHER ==
[2024-08-30 12:07] VITALS: BMI 23.7
[2024-08-30] MEDS ORDERED: hydrOXYzine PAMOATE 25 MG CAPSULE (FP) PO PRN (14:32)
[2024-08-30] MEDS ORDERED: BENZONATATE 200 MG CAPSULE PO PRN (14:32)
[2024-08-30] MEDS ORDERED: NICOTINE POLACRILEX 2 MG GUM BUC PRN (14:32)
[2024-08-30] MEDS ORDERED: LOPERAMIDE HCL 2 MG CAPSULE PO PRN (14:32)
[2024-08-30] MEDS ORDERED: IBUPROFEN 400 MG TABLET (FP) PO PRN (14:32)
[2024-08-30] MEDS ORDERED: DICYCLOMINE HCL 10 MG CAPSULE PO PRN (14:32)
[2024-08-30] MEDS ORDERED: ACETAMINOPHEN 325 MG TABLET (FP) PO PRN (14:32)
[2024-08-30] MEDS ORDERED: MAG HYDROX/AL HYDROX/SIMETH 30 ML UNIT-DOSE CUP PO PRN (14:32)
[2024-08-30] MEDS ORDERED: BENZOCAINE/MENTHOL (CHLORASEPTIC ) LOZENGE MM PRN (14:32)
[2024-08-30] MEDS ORDERED: diazePAM 5 MG TABLET PO PRN (14:32)
[2024-08-30] MEDS ORDERED: NICOTINE POLACRILEX 2 MG LOZENGE BC PRN (14:32)
[2024-08-30] MEDS ORDERED: ONDANSETRON *ODT* 4 MG TABLET SL PRN (14:32)
[2024-08-30] MEDS ORDERED: guaiFENesin 600 MG TABLET.ER (FP) PO PRN (14:32)
[2024-08-30] MEDS ORDERED: POLYETHYLENE GLYCOL (HEALTHYLAX) 3350 17 GM PACKET PO PRN (14:32)
[2024-08-30] MEDS ORDERED: NALOXONE (NARCAN) HCL 4 MG/0.1 ML SPRAY NS PRN (14:32)
[2024-08-30] MEDS ORDERED: BISMUTH SUBSALICYLATE 524 MG/30 ML PO PRN (14:32)
[2024-08-30] MEDS ORDERED: MAGNESIUM HYDROX 2400MG/30ML ORAL SUSPENSION 30 ML CUP PO PRN (14:32)
[2024-08-30] MEDS ORDERED: IBUPROFEN 600 MG TABLET (FP) PO PRN (14:32)
[2024-08-30] MEDS ORDERED: ALBUTEROL SO4 HFA INHALER IH PRN (14:34)
[2024-08-30] MEDS: THIAMINE 100 MG TABLET PO SCH (22:28)
[2024-08-30] MEDS: MELATONIN 5 MG TABLETS PO SCH (22:28)
[2024-08-30] MEDS: METHOCARBAMOL 500 MG TABLET PO PRN (22:28)
[2024-08-30] MEDS: diazePAM 5 MG TABLET PO SCH (22:29)
[2024-08-31 06:28] VITALS: RESP 16
[2024-08-31 09:44] VITALS: BP 138/89; PULSE 73; TEMP 96.9
[2024-08-31] MEDS: PRENATAL VITAMINS W/ FOLIC ACID TABLET (FP) PO SCH (10:24)
[2024-08-31] MEDS: NICOTINE 21 MG/24 HOURS TOPICAL PATCH TD SCH (10:24)
[2024-08-31] MEDS ORDERED: NALOXONE (NYS OPIOID OVERDOSE PROGRAM) 4 MG/0.1 ML SPRAY NS SCH (10:30)
[2024-09-01] MEDS ORDERED: diazePAM 5 MG TABLET PO SCH (06:00)
[2024-09-02] MEDS ORDERED: diazePAM 5 MG TABLET PO SCH (06:00)
[2024-09-03] MEDS ORDERED: diazePAM 5 MG TABLET PO ONE (06:00)
== END 2024-08-31 10:44 | disposition left against medical advice (07) | DRG 770 ==
LOC: YASAS 11:40 → Y3N 15:04
PROVIDERS: ADMIT Allergy & Immunology; ATTEND Surgery
PROC: HZ2ZZZZ Detoxification Services for Substance Abuse Treatment (ICD-10-PCS; principal; 2024-08-30)
DX: F10.230 Alcohol dependence with withdrawal, uncomplicated (principal); F14.20 Cocaine dependence, uncomplicated; F12.20 Cannabis dependence, uncomplicated; F17.210 Nicotine dependence, cigarettes, uncomplicated; F41.9 Anxiety disorder, unspecified; I10 Essential (primary) hypertension; J45.909 Unspecified asthma, uncomplicated; Z86.11 Personal history of tuberculosis; Z86.19 Personal history of other infectious and parasitic diseases; Z59.00 Homelessness unspecified
CPT/HCPCS: 93005; 93010

== ENCOUNTER 2024-09-18 15:21 | Inpatient (IN) | payer OTHER ==
[2024-09-18 16:11] VITALS: BMI 23.1
[2024-09-18] MEDS ORDERED: NALOXONE (NARCAN) HCL 4 MG/0.1 ML SPRAY NS PRN (16:45)
[2024-09-18] MEDS ORDERED: NICOTINE POLACRILEX 4 MG GUM BUC PRN (16:45)
[2024-09-18] MEDS ORDERED: guaiFENesin 600 MG TABLET.ER (FP) PO PRN (16:45)
[2024-09-18] MEDS ORDERED: LOPERAMIDE HCL 2 MG CAPSULE PO PRN (16:45)
[2024-09-18] MEDS ORDERED: ACETAMINOPHEN 325 MG TABLET (FP) PO PRN (16:45)
[2024-09-18] MEDS ORDERED: MAGNESIUM HYDROX 2400MG/30ML ORAL SUSPENSION 30 ML CUP PO PRN (16:45)
[2024-09-18] MEDS ORDERED: BENZONATATE 200 MG CAPSULE PO PRN (16:45)
[2024-09-18] MEDS ORDERED: POLYETHYLENE GLYCOL (HEALTHYLAX) 3350 17 GM PACKET PO PRN (16:45)
[2024-09-18] MEDS ORDERED: DICYCLOMINE HCL 10 MG CAPSULE PO PRN (16:45)
[2024-09-18] MEDS ORDERED: BENZOCAINE/MENTHOL (CHLORASEPTIC ) LOZENGE MM PRN (16:45)
[2024-09-18] MEDS ORDERED: IBUPROFEN 400 MG TABLET (FP) PO PRN (16:45)
[2024-09-18] MEDS ORDERED: MAG HYDROX/AL HYDROX/SIMETH 30 ML UNIT-DOSE CUP PO PRN (16:45)
[2024-09-18] MEDS ORDERED: ONDANSETRON *ODT* 4 MG TABLET SL PRN (16:45)
[2024-09-18] MEDS ORDERED: diazePAM 5 MG TABLET ONE (18:16)
[2024-09-18] MEDS: diazePAM 5 MG TABLET PO SCH (18:44)
[2024-09-18] MEDS: METHOCARBAMOL 500 MG TABLET PO PRN (22:21)
[2024-09-18] MEDS: THIAMINE 100 MG TABLET PO SCH (22:21)
[2024-09-18] MEDS: MELATONIN 5 MG TABLETS PO SCH (22:22)
[2024-09-19] MEDS: NICOTINE 21 MG/24 HOURS TOPICAL PATCH TD SCH (10:11)
[2024-09-19] MEDS: PRENATAL VITAMINS W/ FOLIC ACID TABLET (FP) PO SCH (10:11)
[2024-09-19 14:42] LABS: HEMATOCRIT 40.4 % (35.4-49); HEMOGLOBIN 12.6 GM/dL (11.7-16.9); MCH 26.8 pg (25.7-33.7); MCHC 31.2 g/dl (32.0-35.9); MEAN CELL VOLUME 85.9 fl (80-96); MEAN PLT VOLUME 8.3 fl (7.5-11.1); PLATELET COUNT 247 10^3/uL (134-434); RBC 4.71 M/mm3 (4.00-5.60); RDW 18.4 % (11.9-15.9); WHITE BLOOD COUNT 4.7 K/mm3 (4.0-10.0)
[2024-09-19 14:50] LABS: CHLORIDE 106 mmol/L (98-107); POTASSIUM 4.5 mmol/L (3.5-5.1); SODIUM 139 mmol/L (136-145)
[2024-09-19 14:58] LABS: ALBUMIN 3.2 g/dl (3.4-5.0); ANION GAP 4 mmol/L (4-13); BLOOD UREA NITROGEN 12.9 mg/dL (7-18); CALCIUM 8.6 mg/dL (8.5-10.1); CO2 29 mmol/L (21-32)
[2024-09-19 14:59] LABS: GLUCOSE,RANDOM 93 mg/dL (74-106)
[2024-09-19 15:00] LABS: SGOT/AST 23 U/L (15-37); SGPT/ALT 12 U/L (13-61)
[2024-09-19 15:01] LABS: BILIRUBIN,TOTAL 0.9 mg/dL (0.2-1)
[2024-09-19 15:02] LABS: ALK PHOS 118 U/L (45-117); TOT PROT 6.3 g/dl (6.4-8.2)
[2024-09-19] MEDS: IBUPROFEN 600 MG TABLET (FP) PO PRN (22:09)
[2024-09-19] MEDS: ALBUTEROL SO4 HFA INHALER IH PRN (22:10)
[2024-09-20] MEDS: diazePAM 5 MG TABLET PO SCH (06:14)
[2024-09-20] MEDS: hydrOXYzine PAMOATE 25 MG CAPSULE (FP) PO PRN (14:47)
[2024-09-20] MEDS: diazePAM 5 MG TABLET PO PRN (17:16)
[2024-09-20] MEDS: BISMUTH SUBSALICYLATE 524 MG/30 ML PO PRN (21:41)
[2024-09-21] MEDS: diazePAM 5 MG TABLET PO SCH (06:08)
[2024-09-21 10:49] VITALS: BP 120/76; PULSE 76; RESP 18; TEMP 98.2
[2024-09-21] MEDS ORDERED: NALOXONE (NYS OPIOID OVERDOSE PROGRAM) 4 MG/0.1 ML SPRAY NS SCH (12:15)
[2024-09-22] MEDS ORDERED: diazePAM 5 MG TABLET PO ONE (06:00)
== END 2024-09-21 12:45 | disposition home or self-care (01) | DRG 774 ==
LOC: YASAS 15:21 → Y6N 18:10
PROVIDERS: ADMIT Allergy & Immunology; ATTEND Family Medicine Addiction Medicine
PROC: HZ2ZZZZ Detoxification Services for Substance Abuse Treatment (ICD-10-PCS; principal; 2024-09-18)
DX: F10.230 Alcohol dependence with withdrawal, uncomplicated (principal); F14.20 Cocaine dependence, uncomplicated; F12.10 Cannabis abuse, uncomplicated; F17.210 Nicotine dependence, cigarettes, uncomplicated; F19.282 Other psychoactive substance dependence with psychoactive substance-induced sleep disorder; F19.24 Other psychoactive substance dependence with psychoactive substance-induced mood disorder; I10 Essential (primary) hypertension; J45.20 Mild intermittent asthma, uncomplicated; Z86.19 Personal history of other infectious and parasitic diseases; Z59.01 Sheltered homelessness
CPT/HCPCS: 36415; 80053; 80305; 80307; 85027; 86780; 93005; 93010

== ENCOUNTER 2024-09-29 16:13 | Inpatient (IN) | payer OTHER ==
[2024-09-29 16:50] VITALS: BMI 23.7
[2024-09-29] MEDS ORDERED: NICOTINE POLACRILEX 2 MG GUM BUC PRN (17:48)
[2024-09-29] MEDS ORDERED: MAG HYDROX/AL HYDROX/SIMETH 30 ML UNIT-DOSE CUP PO PRN (17:48)
[2024-09-29] MEDS ORDERED: IBUPROFEN 400 MG TABLET (FP) PO PRN (17:48)
[2024-09-29] MEDS ORDERED: hydrOXYzine PAMOATE 25 MG CAPSULE (FP) PO PRN (17:48)
[2024-09-29] MEDS ORDERED: ACETAMINOPHEN 325 MG TABLET (FP) PO PRN (17:48)
[2024-09-29] MEDS ORDERED: NALOXONE (NARCAN) HCL 4 MG/0.1 ML SPRAY NS PRN (17:48)
[2024-09-29] MEDS ORDERED: guaiFENesin 600 MG TABLET.ER (FP) PO PRN (17:48)
[2024-09-29] MEDS ORDERED: BENZONATATE 200 MG CAPSULE PO PRN (17:48)
[2024-09-29] MEDS ORDERED: BENZOCAINE/MENTHOL (CHLORASEPTIC ) LOZENGE MM PRN (17:48)
[2024-09-29] MEDS ORDERED: LOPERAMIDE HCL 2 MG CAPSULE PO PRN (17:48)
[2024-09-29] MEDS ORDERED: MAGNESIUM HYDROX 2400MG/30ML ORAL SUSPENSION 30 ML CUP PO PRN (17:48)
[2024-09-29] MEDS ORDERED: POLYETHYLENE GLYCOL (HEALTHYLAX) 3350 17 GM PACKET PO PRN (17:48)
[2024-09-29 18:55] VITALS: PULSE 74; RESP 18
[2024-09-29] MEDS ORDERED: ALBUTEROL SO4 HFA INHALER IH ONE (19:28)
[2024-09-29] MEDS ORDERED: ALBUTEROL SO4 HFA INHALER IH PRN (19:32)
[2024-09-29] MEDS: IBUPROFEN 600 MG TABLET (FP) PO PRN (21:20)
[2024-09-29] MEDS: THIAMINE 100 MG TABLET PO SCH (21:48)
[2024-09-29] MEDS: MELATONIN 5 MG TABLETS PO SCH (21:48)
[2024-09-30 06:42] VITALS: BP 135/85; TEMP 98.2
[2024-09-30] MEDS: PRENATAL VITAMINS W/ FOLIC ACID TABLET (FP) PO SCH (09:34)
[2024-09-30] MEDS: NICOTINE 21 MG/24 HOURS TOPICAL PATCH TD SCH (09:34)
[2024-09-30] MEDS ORDERED: NALOXONE (NYS OPIOID OVERDOSE PROGRAM) 4 MG/0.1 ML SPRAY NS SCH (11:30)
[2024-09-30 11:41] LABS: HEMATOCRIT 41.1 % (35.4-49); HEMOGLOBIN 13.1 GM/dL (11.7-16.9); MCH 27.5 pg (25.7-33.7); MCHC 31.9 g/dl (32.0-35.9); MEAN CELL VOLUME 86.2 fl (80-96); PLATELET COUNT 358 10^3/uL (134-434); RBC 4.77 M/mm3 (4.00-5.60); RDW 17.5 % (11.9-15.9); WHITE BLOOD COUNT 5.7 K/mm3 (4.0-10.0)
[2024-09-30 14:10] LABS: CHLORIDE 103 mmol/L (98-107); POTASSIUM 3.9 mmol/L (3.5-5.1); SODIUM 138 mmol/L (136-145)
[2024-09-30 14:20] LABS: ALBUMIN 3.4 g/dl (3.4-5.0); ANION GAP 7 mmol/L (4-13); BLOOD UREA NITROGEN 15.7 mg/dL (7-18); CALCIUM 8.7 mg/dL (8.5-10.1); CO2 28 mmol/L (21-32); GLUCOSE,RANDOM 124 mg/dL (74-106)
[2024-09-30 14:23] LABS: SGOT/AST 22 U/L (15-37); SGPT/ALT 15 U/L (13-61)
[2024-09-30 14:24] LABS: CREATININE 1.2 mg/dL (0.55-1.3)
[2024-09-30 14:25] LABS: BILIRUBIN,TOTAL 0.4 mg/dL (0.2-1); TOT PROT 6.5 g/dl (6.4-8.2)
[2024-09-30 14:26] LABS: ALK PHOS 120 U/L (45-117)
== END 2024-09-30 11:32 | disposition left against medical advice (07) | DRG 770 ==
LOC: YASAS 16:13 → Y3NR 18:24
PROVIDERS: ADMIT Psychiatry & Neurology Pain Medicine; ATTEND Psychiatry & Neurology Pain Medicine
PROC: HZ42ZZZ Group Counseling for Substance Abuse Treatment, Cognitive-Behavioral (ICD-10-PCS; principal; 2024-09-29)
DX: F10.20 Alcohol dependence, uncomplicated (principal); F14.20 Cocaine dependence, uncomplicated; F17.210 Nicotine dependence, cigarettes, uncomplicated; F19.282 Other psychoactive substance dependence with psychoactive substance-induced sleep disorder; F19.24 Other psychoactive substance dependence with psychoactive substance-induced mood disorder; I10 Essential (primary) hypertension; J45.20 Mild intermittent asthma, uncomplicated; Z56.0 Unemployment, unspecified; Z59.02 Unsheltered homelessness
CPT/HCPCS: 36415; 80053; 80305; 80307; 85027; 86780; 87811; 93005; 93010

== ENCOUNTER 2024-10-29 18:16 | Inpatient (IN) | payer OTHER ==
[2024-10-29 18:42] VITALS: BMI 23.1
[2024-10-29] MEDS ORDERED: MAGNESIUM HYDROX 2400MG/30ML ORAL SUSPENSION 30 ML CUP PO PRN (19:07)
[2024-10-29] MEDS ORDERED: guaiFENesin 600 MG TABLET.ER (FP) PO PRN (19:07)
[2024-10-29] MEDS ORDERED: ONDANSETRON *ODT* 4 MG TABLET SL PRN (19:07)
[2024-10-29] MEDS ORDERED: BENZONATATE 200 MG CAPSULE PO PRN (19:07)
[2024-10-29] MEDS ORDERED: MAG HYDROX/AL HYDROX/SIMETH 30 ML UNIT-DOSE CUP PO PRN (19:07)
[2024-10-29] MEDS ORDERED: IBUPROFEN 400 MG TABLET (FP) PO PRN (19:07)
[2024-10-29] MEDS ORDERED: BENZOCAINE/MENTHOL (CHLORASEPTIC ) LOZENGE MM PRN (19:07)
[2024-10-29] MEDS ORDERED: NICOTINE POLACRILEX 2 MG GUM BUC PRN (19:07)
[2024-10-29] MEDS ORDERED: NALOXONE (NARCAN) HCL 4 MG/0.1 ML SPRAY NS PRN (19:07)
[2024-10-29] MEDS ORDERED: DICYCLOMINE HCL 10 MG CAPSULE PO PRN (19:07)
[2024-10-29] MEDS ORDERED: POLYETHYLENE GLYCOL (HEALTHYLAX) 3350 17 GM PACKET PO PRN (19:07)
[2024-10-29] MEDS ORDERED: ACETAMINOPHEN 325 MG TABLET (FP) PO PRN (19:07)
[2024-10-29] MEDS ORDERED: LOPERAMIDE HCL 2 MG CAPSULE PO PRN (19:07)
[2024-10-29] MEDS ORDERED: diazePAM 5 MG TABLET PO PRN (19:07)
[2024-10-29] MEDS ORDERED: METHOCARBAMOL 500 MG TABLET ONE (19:53)
[2024-10-29] MEDS: METHOCARBAMOL 500 MG TABLET PO PRN (19:54)
[2024-10-29] MEDS: IBUPROFEN 600 MG TABLET (FP) PO PRN (21:03)
[2024-10-29] MEDS: THIAMINE 100 MG TABLET PO SCH (22:28)
[2024-10-29] MEDS: MELATONIN 5 MG TABLETS PO SCH (22:28)
[2024-10-29] MEDS: diazePAM 5 MG TABLET PO SCH (22:29)
[2024-10-29] MEDS: BISMUTH SUBSALICYLATE 524 MG/30 ML PO PRN (22:30)
[2024-10-30 09:27] LABS: HEMATOCRIT 40.3 % (35.4-49); HEMOGLOBIN 13.2 GM/dL (11.7-16.9); MCH 27.4 pg (25.7-33.7); MCHC 32.9 g/dl (32.0-35.9); MEAN CELL VOLUME 83.4 fl (80-96); PLATELET COUNT 309 10^3/uL (134-434); RBC 4.83 M/mm3 (4.00-5.60); RDW 16.7 % (11.9-15.9); WHITE BLOOD COUNT 4.9 K/mm3 (4.0-10.0)
[2024-10-30 09:30] LABS: CHLORIDE 103 mmol/L (98-107); POTASSIUM 4.1 mmol/L (3.5-5.1); SODIUM 137 mmol/L (136-145)
[2024-10-30 09:36] LABS: CALCIUM 8.3 mg/dL (8.5-10.1)
[2024-10-30 09:37] LABS: ALBUMIN 3.3 g/dl (3.4-5.0); ANION GAP 5 mmol/L (4-13); BLOOD UREA NITROGEN 13.3 mg/dL (7-18); CO2 30 mmol/L (21-32); GLUCOSE,RANDOM 70 mg/dL (74-106)
[2024-10-30 09:40] LABS: CREATININE 1.1 mg/dL (0.55-1.3); SGOT/AST 20 U/L (15-37); SGPT/ALT 15 U/L (13-61)
[2024-10-30 09:42] LABS: BILIRUBIN,TOTAL 0.7 mg/dL (0.2-1); TOT PROT 6.6 g/dl (6.4-8.2)
[2024-10-30 09:43] LABS: ALK PHOS 117 U/L (45-117)
[2024-10-30] MEDS: PRENATAL VITAMINS W/ FOLIC ACID TABLET (FP) PO SCH (10:10)
[2024-10-30] MEDS: NICOTINE 21 MG/24 HOURS TOPICAL PATCH TD SCH (10:12)
[2024-10-30] MEDS: ALBUTEROL SO4 HFA INHALER IH PRN (19:42)
[2024-10-30] MEDS: SUVOREXANT 10 MG TABLET PO PRN (22:31)
[2024-10-31] MEDS: diazePAM 5 MG TABLET PO SCH (06:09)
[2024-10-31 09:20] VITALS: TEMP 97.8
[2024-10-31] MEDS: amLODIPine BESYLATE 5 MG TABLET (FP) PO SCH (10:28)
[2024-10-31 13:25] VITALS: BP 138/90; PULSE 80; RESP 16
[2024-10-31] MEDS: hydrOXYzine PAMOATE 25 MG CAPSULE (FP) PO PRN (13:28)
[2024-11-01] MEDS ORDERED: diazePAM 5 MG TABLET PO SCH (06:00)
[2024-11-02] MEDS ORDERED: diazePAM 5 MG TABLET PO ONE (06:00)
== END 2024-10-31 14:59 | disposition left against medical advice (07) | DRG 770 ==
LOC: YASAS 18:16 → Y6N 19:53
PROVIDERS: ADMIT Allergy & Immunology; ATTEND Allergy & Immunology
PROC: HZ2ZZZZ Detoxification Services for Substance Abuse Treatment (ICD-10-PCS; principal; 2024-10-29)
DX: F10.230 Alcohol dependence with withdrawal, uncomplicated (principal); F14.20 Cocaine dependence, uncomplicated; F17.210 Nicotine dependence, cigarettes, uncomplicated; F19.282 Other psychoactive substance dependence with psychoactive substance-induced sleep disorder; F19.280 Other psychoactive substance dependence with psychoactive substance-induced anxiety disorder; I10 Essential (primary) hypertension; J45.20 Mild intermittent asthma, uncomplicated; Z86.19 Personal history of other infectious and parasitic diseases; Z59.00 Homelessness unspecified
CPT/HCPCS: 36415; 80053; 80305; 80307; 85027; 86780; 93005; 93010

== ENCOUNTER 2024-11-19 20:55 | Inpatient (IN) | payer OTHER ==
[2024-11-19 21:00] VITALS: BMI 22.4
[2024-11-19] MEDS ORDERED: ALBUTEROL SO4 HFA INHALER IH PRN (21:14)
[2024-11-19] MEDS ORDERED: NICOTINE POLACRILEX 2 MG LOZENGE BC PRN (21:16)
[2024-11-19] MEDS ORDERED: ACETAMINOPHEN 325 MG TABLET (FP) PO PRN (21:16)
[2024-11-19] MEDS ORDERED: POLYETHYLENE GLYCOL (HEALTHYLAX) 3350 17 GM PACKET PO PRN (21:16)
[2024-11-19] MEDS ORDERED: LOPERAMIDE HCL 2 MG CAPSULE PO PRN (21:16)
[2024-11-19] MEDS ORDERED: IBUPROFEN 600 MG TABLET (FP) PO PRN (21:16)
[2024-11-19] MEDS ORDERED: IBUPROFEN 400 MG TABLET (FP) PO PRN (21:16)
[2024-11-19] MEDS ORDERED: NALOXONE (NARCAN) HCL 4 MG/0.1 ML SPRAY NS PRN (21:16)
[2024-11-19] MEDS ORDERED: MAGNESIUM HYDROX 2400MG/30ML ORAL SUSPENSION 30 ML CUP PO PRN (21:16)
[2024-11-19] MEDS ORDERED: BENZOCAINE/MENTHOL (CHLORASEPTIC ) LOZENGE MM PRN (21:16)
[2024-11-19] MEDS ORDERED: NICOTINE POLACRILEX 2 MG GUM BUC PRN (21:16)
[2024-11-19] MEDS ORDERED: guaiFENesin 600 MG TABLET.ER (FP) PO PRN (21:16)
[2024-11-19] MEDS ORDERED: ONDANSETRON *ODT* 4 MG TABLET SL PRN (21:16)
[2024-11-19] MEDS ORDERED: BENZONATATE 200 MG CAPSULE PO PRN (21:16)
[2024-11-19] MEDS ORDERED: diazePAM 5 MG TABLET PO PRN (21:18)
[2024-11-19] MEDS ORDERED: cloNIDine HCL 0.1 MG TABLET ONE (21:35)
[2024-11-19] MEDS: cloNIDine HCL 0.1 MG TABLET PO ONE (21:36)
[2024-11-19] MEDS: MELATONIN 5 MG TABLETS PO SCH (22:52)
[2024-11-19] MEDS: diazePAM 5 MG TABLET PO SCH (22:55)
[2024-11-19] MEDS: THIAMINE 100 MG TABLET PO SCH (22:56)
[2024-11-19] MEDS: DICYCLOMINE HCL 10 MG CAPSULE PO PRN (22:56)
[2024-11-20] MEDS: PRENATAL VITAMINS W/ FOLIC ACID TABLET (FP) PO SCH (10:05)
[2024-11-20] MEDS: ASPIRIN COATED 81 MG TABLET.EC PO SCH (10:07)
[2024-11-20] MEDS: METHOCARBAMOL 500 MG TABLET PO PRN (17:11)
[2024-11-20] MEDS: BISMUTH SUBSALICYLATE 524 MG/30 ML PO PRN (17:39)
[2024-11-20] MEDS: MAG HYDROX/AL HYDROX/SIMETH 30 ML UNIT-DOSE CUP PO PRN (18:54)
[2024-11-21] MEDS: diazePAM 5 MG TABLET PO SCH (05:40)
[2024-11-21 09:57] VITALS: BP 144/118; PULSE 70; RESP 18; TEMP 98.6
[2024-11-22] MEDS ORDERED: diazePAM 5 MG TABLET PO SCH (06:00)
[2024-11-23] MEDS ORDERED: diazePAM 5 MG TABLET PO ONE (06:00)
== END 2024-11-21 09:20 | disposition left against medical advice (07) | DRG 770 ==
LOC: YASAS 20:55 → Y6N 21:47
PROVIDERS: ADMIT Allergy & Immunology; ATTEND Family Medicine Addiction Medicine
PROC: HZ2ZZZZ Detoxification Services for Substance Abuse Treatment (ICD-10-PCS; principal; 2024-11-19)
DX: F10.230 Alcohol dependence with withdrawal, uncomplicated (principal); F14.10 Cocaine abuse, uncomplicated; F12.10 Cannabis abuse, uncomplicated; F17.210 Nicotine dependence, cigarettes, uncomplicated; I10 Essential (primary) hypertension; J45.909 Unspecified asthma, uncomplicated; Z86.19 Personal history of other infectious and parasitic diseases; Z56.0 Unemployment, unspecified; Z59.02 Unsheltered homelessness
CPT/HCPCS: 80305; 80307

== ENCOUNTER 2025-01-13 21:26 | Inpatient (IN) | payer OTHER ==
[2025-01-13 21:52] VITALS: BMI 22.9
[2025-01-13] MEDS ORDERED: LOPERAMIDE HCL 2 MG CAPSULE PO PRN (22:13)
[2025-01-13] MEDS ORDERED: NICOTINE POLACRILEX 2 MG LOZENGE BC PRN (22:13)
[2025-01-13] MEDS ORDERED: BENZOCAINE/MENTHOL (CHLORASEPTIC ) LOZENGE MM PRN (22:13)
[2025-01-13] MEDS ORDERED: DICYCLOMINE HCL 10 MG CAPSULE PO PRN (22:13)
[2025-01-13] MEDS ORDERED: BENZONATATE 200 MG CAPSULE PO PRN (22:13)
[2025-01-13] MEDS ORDERED: guaiFENesin 600 MG TABLET.ER (FP) PO PRN (22:13)
[2025-01-13] MEDS ORDERED: MAGNESIUM HYDROX 2400MG/30ML ORAL SUSPENSION 30 ML CUP PO PRN (22:13)
[2025-01-13] MEDS ORDERED: IBUPROFEN 400 MG TABLET (FP) PO PRN (22:13)
[2025-01-13] MEDS ORDERED: BISMUTH SUBSALICYLATE 524 MG/30 ML PO PRN (22:13)
[2025-01-13] MEDS ORDERED: POLYETHYLENE GLYCOL (HEALTHYLAX) 3350 17 GM PACKET PO PRN (22:13)
[2025-01-13] MEDS ORDERED: NICOTINE POLACRILEX 2 MG GUM BUC PRN (22:13)
[2025-01-13] MEDS ORDERED: ONDANSETRON *ODT* 4 MG TABLET SL PRN (22:13)
[2025-01-13] MEDS ORDERED: NALOXONE (NARCAN) HCL 4 MG/0.1 ML SPRAY NS PRN (22:13)
[2025-01-13] MEDS ORDERED: hydrOXYzine PAMOATE 25 MG CAPSULE (FP) PO ONE (22:51)
[2025-01-13] MEDS ORDERED: METHOCARBAMOL 500 MG TABLET ONE (22:51)
[2025-01-13] MEDS: hydrOXYzine PAMOATE 25 MG CAPSULE (FP) PO PRN (22:59)
[2025-01-13] MEDS: METHOCARBAMOL 500 MG TABLET PO PRN (22:59)
[2025-01-13] MEDS: TOLNAFTATE 1% CREAM 15 GM TUBE TP SCH (23:37)
[2025-01-14] MEDS: PRENATAL VITAMINS W/ FOLIC ACID TABLET (FP) PO SCH (10:07)
[2025-01-14] MEDS ORDERED: chlordiazePOXIDE HCL 25 MG CAPSULE PO PRN (10:33)
[2025-01-14 10:45] LABS: POTASSIUM 4.2 mmol/L (3.5-5.1)
[2025-01-14 10:51] LABS: HEMOGLOBIN 12.9 g/dL (13.7-17.5); MCHC 32.3 g/dl (32.3-36.5); MEAN CELL VOLUME 83.5 fl (79.0-92.2); MEAN PLT VOLUME 10.2 fl (9.4-12.4); PLATELET COUNT 276 x10^3/uL (163-337); RDW 17.2 % (12.2-16.1)
[2025-01-14 10:59] LABS: ALBUMIN 3.5 g/dl (3.4-5.0); BLOOD UREA NITROGEN 16.5 mg/dL (7-18)
[2025-01-14 11:02] LABS: CREATININE 1.2 mg/dL (0.55-1.3)
[2025-01-14 11:04] LABS: BILIRUBIN,TOTAL 0.6 mg/dL (0.2-1); TOT PROT 6.7 g/dl (6.4-8.2)
[2025-01-14] MEDS: chlordiazePOXIDE HCL 25 MG CAPSULE PO SCH (11:07)
[2025-01-14] MEDS: MAG HYDROX/AL HYDROX/SIMETH 30 ML UNIT-DOSE CUP PO PRN (16:53)
[2025-01-14] MEDS: IBUPROFEN 600 MG TABLET (FP) PO PRN (19:52)
[2025-01-14] MEDS: ALBUTEROL SO4 HFA INHALER IH PRN (21:00)
[2025-01-14] MEDS ORDERED: MELATONIN 5 MG TABLETS PO SCH (22:00)
[2025-01-14] MEDS: SUVOREXANT 10 MG TABLET PO PRN (22:21)
[2025-01-14] MEDS: THIAMINE 100 MG TABLET PO SCH (22:23)
[2025-01-15] MEDS: chlordiazePOXIDE HCL 25 MG CAPSULE PO SCH (06:00)
[2025-01-15] MEDS: ACETAMINOPHEN 325 MG TABLET (FP) PO PRN (06:01)
[2025-01-15 09:05] VITALS: BP 149/120; PULSE 73; RESP 16; TEMP 98.4
[2025-01-15] MEDS: amLODIPine BESYLATE 10 MG TABLET (FP) PO ONE (10:31)
[2025-01-16] MEDS ORDERED: chlordiazePOXIDE HCL 10 MG CAPSULE PO PRN
[2025-01-16] MEDS ORDERED: chlordiazePOXIDE HCL 10 MG CAPSULE PO SCH (05:00)
[2025-01-17] MEDS ORDERED: chlordiazePOXIDE HCL 10 MG CAPSULE PO SCH (05:00)
[2025-01-18] MEDS ORDERED: chlordiazePOXIDE HCL 10 MG CAPSULE PO ONE (05:00)
== END 2025-01-15 13:21 | disposition left against medical advice (07) | DRG 770 ==
LOC: YASAS 21:26 → Y6N 22:55
PROVIDERS: ADMIT Allergy & Immunology; ATTEND Allergy & Immunology
PROC: HZ2ZZZZ Detoxification Services for Substance Abuse Treatment (ICD-10-PCS; principal; 2025-01-13)
DX: F10.230 Alcohol dependence with withdrawal, uncomplicated (principal); F14.20 Cocaine dependence, uncomplicated; F12.10 Cannabis abuse, uncomplicated; F17.210 Nicotine dependence, cigarettes, uncomplicated; D64.9 Anemia, unspecified; I10 Essential (primary) hypertension; R74.01 Elevation of levels of liver transaminase levels
CPT/HCPCS: 36415; 80053; 80305; 80307; 85027; 86780